=== PATIENT | male | born 1940 | race Caucasian/White ===

== ENCOUNTER 2017-02-21 21:23 | Emergency (ER) | payer OTHER ==
[~2017-02-21] VITALS: Ht 180.3 cm; Wt 93.8 kg
[~2017-02-21 21:23] MED LIST: ASPIR 8181 M1; ATORVASTATIN CA80 MG PO; Aspirin E.C. PO; Bactrim,Septra DS 80 PO; FLOMAX0.4 MG PO; LISINOPRIL5 MG PO; MAGIC MOUTHWASH1 ML MM; METOPROLOL SUC100 MG PO; OMEGA-3 FISH1000 M1 PO; PROTONIX40 MG PO; ST. JOSEPH ASPI81 MG PO; Toprol XL PO; VITAMIN B-121000 MCG PO; VITAMIN D1000 INTUN PO; VITAMIN D1000 UNIT PO; VITAMIN D31000 UNIT PO; VYTORIN; Vytorin 10/10 PO; ZETIA10 MG PO; ZITHROMAX Z-PA250 MG PO
[2017-02-22 01:09] LABS: EOSINOPHIL (%) 3.8 % (0-5); EOSINOPHIL COUNT 0.3 K/uL (0-0.3); IMMATURE GRANULOCYTE (%) 0.4 % (0.0-0.7); INSTRUMENT ABS NEUTROPHIL CT 4.3 K/uL; LYMPHOCYTE COUNT 2.6 K/uL (1.0-2.8); MCH 32.7 PG (29.0-34.0); MCHC 33.6 G/DL (30.0-36.0); MCV 97.1 FL (86-99); MONOCYTE (%) 9.2 % (3-12); MONOCYTE COUNT 0.7 K/uL (0-0.8); NEUTROPHIL (%) 53.8 % (45-76); NEUTROPHIL COUNT 4.3 K/uL (1.8-6.4); PLATELET COUNT 202 K/uL (156-360); RBC DIS.WIDTH-SD 46.5 % (39-53); RED BLOOD COUNT 4.53 M/uL (4.00-5.50); WHITE BLOOD COUNT 7.9 K/uL (4.1-10.2)
[2017-02-22 01:15] LABS: INTER. NORMALIZED RATIO 1.1; PROTHROMBIN TIME 12.4 SEC (10.2-12.9)
[2017-02-22 01:18] LABS: CHLORIDE 105 mEq/L (99-109); POTASSIUM 3.9 mEq/L (3.7-5.4); PTT 30.4 SEC (25-37); SODIUM 142 mEq/L (136-147)
[2017-02-22 01:20] LABS: GLUCOSE 92 mg/dL (70-99)
[2017-02-22 01:21] LABS: ANION GAP 9 MEQ/L (2-14)
[2017-02-22 01:22] LABS: TOTAL BILIRUBIN 0.9 mg/dL (0.0-1.0)
[2017-02-22 01:23] LABS: ALKALINE PHOSPHATASE 75 IU/L (3-129)
[2017-02-22 01:24] LABS: GFR ESTIMATE (CALCULATED) > 59 mL/min/
[2017-02-22 01:25] LABS: DIRECT BILIRUBIN 0.4 mg/dL (0.0-0.3); UREA NITROGEN (BUN) 18 mg/dL (9-23)
[2017-02-22 02:25] VITALS: BP 152/90
== END 2017-02-22 02:32 | disposition home or self-care (01) ==
LOC: EME 21:23
PROVIDERS: Emergency Medicine
DX: R60.0 Localized edema (principal); E78.5 Hyperlipidemia, unspecified; Z87.442 Personal history of urinary calculi; Z87.891 Personal history of nicotine dependence
CPT/HCPCS: 80048; 80076; 83880; 85025; 85610; 85730; 93970; 99281; 99284